=== PATIENT | male | born 1970 | race Caucasian/White ===

== ENCOUNTER → 2020-05-09 17:16 | Outpatient (CLI) | payer OTHER, SELFPAY ==
[2020-05-09 18:16] LABS: PSA,Total - Annual Screen 1.06 ng/mL (0.00-4.00)
== END ==
PROVIDERS: PCP Family Medicine; Referring Provider Urology; Visit Provider Urology
CPT/HCPCS: 36415; 84153; 87086; G0103

== ENCOUNTER → 2022-08-03 | Outpatient (CLI) | payer BC, SELFPAY ==
[2022-08-03 17:28] LABS: PSA,Total - Annual Screen 0.89 ng/mL (0.00-4.00)
== END | disposition home or self-care (01) ==
LOC: LAB 16:22
PROVIDERS: PCP Family Medicine; Visit Provider Urology
DX: Z12.5 Encounter for screening for malignant neoplasm of prostate (principal)
CPT/HCPCS: 36415; 84153; G0103

== ENCOUNTER → 2023-09-02 | Outpatient (CLI) | payer BC, SELFPAY ==
[2023-09-02 17:27] LABS: PSA,Total - Annual Screen 1.79 ng/mL (0.00-4.00)
== END | disposition home or self-care (01) ==
LOC: LAB 16:06
PROVIDERS: PCP Family Medicine; Visit Provider Urology
DX: Z12.5 Encounter for screening for malignant neoplasm of prostate (principal); N40.1 Benign prostatic hyperplasia with lower urinary tract symptoms
CPT/HCPCS: 36415; 84153; G0103

== ENCOUNTER → 2024-09-07 | Outpatient (CLI) | payer BC, SELFPAY ==
[2024-09-07 16:58] LABS: PSA,Total - Annual Screen 0.94 ng/mL (0.00-4.00)
== END | disposition home or self-care (01) ==
PROVIDERS: PCP Family Medicine; Referring Provider Urology; Visit Provider Urology
DX: Z12.5 Encounter for screening for malignant neoplasm of prostate (principal)
CPT/HCPCS: 36415; 84153; G0103

== ENCOUNTER → 2025-03-19 | Outpatient (CLI) | payer BC, SELFPAY ==
--- NOTE | 2025-03-19 14:35 | RAD_ITS ---
PROCEDURE: ABDOMEN SINGLE VIEW 03/19/2025 REASON FOR EXAM: CALCULUS OF KIDNEY TECHNIQUE: Three-view supine abdomen COMPARISON: None provided. RAD/Abdomen Single View IMPRESSION: Right upper quadrant abdominal surgical clips are seen. Multiple small calculi are seen in the mid and inferior portions of both kidney s. The bowel-gas pattern is unremarkable. No mass or mass effect is seen. Mild bilateral hip joint degenerative changes are seen. Mild degenerative mruo ges of the visualized spine also noted. Reading Location: [place] [id number]
== END | disposition home or self-care (01) ==
LOC: RAD 14:30
PROVIDERS: PCP Family Medicine; Referring Provider Nurse Practitioner; Visit Provider Nurse Practitioner
DX: N20.0 Calculus of kidney (principal)
CPT/HCPCS: 74018